=== PATIENT | male | born 1935 | race Caucasian/White ===

== ENCOUNTER 2018-09-24 18:23 | Emergency (ER) | payer MEDICARE, BC, OTHER, SELFPAY ==
[2018-09-24 18:25] VITALS: BP 154/84; PULSE 58; RESP 15; TEMP 36.4; O2SAT 98; BMI 27.6
--- NOTE | 2018-09-24 18:47 | ED.UPPEXIN ---
HPI - Extremity Injury (Upper) General Chief Complaint: Extremity Injury, Upper Stated Complaint: left arm incredible pain Time Seen by Provider: 09/24/18 18:47 Source: patient Mode of arrival: ambulatory Limitations: no limitations History of Present Illness HPI narrative: Patient is an 82-year-old male. Here for evaluation of a left arm injury. Patient states that yesterday he went to lift a dog and during the process had a sudden pain in his left arm. Very difficult for him to localize. He points from his mid humerus down to his mid forearm. He states that it caused him to drop the dog. Has had pain since then however yesterday afternoon it seemed to improve somewhat. He stated that earlier today he was lifting something over a small gait and again had a sudden return of the pain worse than what it was before. It is continued since then. Difficult for him to localize where the pain specifically is. Thought that he noticed some swelling on the inside portion of his elbow. Related Data Home Medications Medication Instructions Recorded Confirmed CA PANTOTHENATE/FOLIC ACID/VIT 1 tab PO Q DAY #0 04/29/11 07/30/18 (MULTIVITAMIN) Previous Rx's Medication Instructions Recorded docusate sodium 100 mg capsule 100 mg PO BID #60 cap 07/30/18 tramadol [Ultram] 50 mg PO Q12H PRN #20 tab 09/24/18 Allergies Allergy/AdvReac Type Severity Reaction Status Date / Time No Known Drug Allergies Allergy Verified 09/24/18 18:37 Review of Systems Constitutional Denies headache(s) ENT Ears, Nose, Mouth, and Throat: Denies headache(s) and Denies disequilibrium Musculoskeletal Comments: Left arm pain Integumentary/Breasts Denies new lesions and Denies rash Neurologic Denies headache(s), Denies paresthesias and Denies disequilibrium Hematologic/Lymphatic Denies easy bleeding and Denies easy bruising [facility] Medical History Cervical radiculopathy (Chronic) Cervical spine disease (Chronic) Chronic back pain (Chronic) Colon polyps (Chronic ~2009) Depression (Chronic ~1979) Foot pain (Chronic ~1999) Hearing loss (Chronic) History of elevated PSA (Chronic ~2009) Hyperlipidemia (Chronic) Osteoarthritis (Chronic) Peripheral neuropathy (Chronic ~1989) Plantar warts (Chronic) Prostate nodule (Chronic ~1999) Restless leg syndrome (Chronic) Scoliosis (Chronic) Shoulder pain (Chronic) Sleep apnea (Chronic ~2012) Spinal stenosis (Chronic) Spine pain, lumbar (Chronic) Vision disorder (Chronic) Chicken pox (Resolved ~1940) Fractures (Resolved ~1943) Measles (Resolved ~1942) Mumps (Resolved ~1943) Severe itching (Resolved) Surgical History (System 08/04/18 @ 09:07 by Sherrell Muñiz) Anesthesia (Resolved) History of back surgery (Resolved) History of knee surgery (Resolved ~1953) History of neck surgery (Resolved) History of surgery on arm (Resolved ~1941) Melanoma (Resolved ~1987) Family History (System 08/04/18 @ 09:07 by Sherrell Muñiz) Father Stroke Grandfather Stroke Grandmother Mental health problem Mother No problems noted. Social History Smoking Status: Never smoker Family History (System 08/04/18 @ 09:07 by Sherrell Muñiz) Father Stroke Grandfather Stroke Grandmother Mental health problem Mother No problems noted. Social History Smoking Status: Never smoker Exam Initial Vital Signs Initial Vital Signs: Vital Signs Temperature 97.6 F 09/24/18 18:25 Pulse Rate 58 L 09/24/18 18:25 Respiratory Rate 15 09/24/18 18:25 Blood Pressure 154/84 H 09/24/18 18:25 Pulse Oximetry 98 09/24/18 18:25 Const General: cooperative, comfortable, well developed, well groomed and No acute distress Orientation: alert and awake Cardio Pulses: radial pulses present on the left Skin Lesions: no lesions Rashes: no rashes Neuro Sensory Exam: no sensory deficits noted Extrem Other: Left hand left wrist unremarkable. Left forearm is unremarkable. Did have quite a bit of discomfort with supination. Was able to pronate without problems. Was able to flex at the elbow however did have some tenderness around the elbow. Extension at the elbow cause no symptoms. Patient able to flex and extend at the shoulder. Had some discomfort with abduction of the shoulder. No tenderness to palpation around the shoulder. Did have tenderness along the brachioradialis in the biceps tendon. I was able to palpate the biceps tendon proximally and distally. Psych Appearance: grossly normal and well kempt Course Orders Ordered: Discontinued Medications Tramadol HCl (Ultram 50mg Prepack) 1 bottle MISC SEEINSTR ONE Stop: 09/24/18 20:21 Last Admin: 09/24/18 20:35 Dose: 1 bottle Vital Signs - 8 hr 09/24/18 20:41 Temperature 98.2 F Pulse Rate 60 Respiratory Rate 18 Blood Pressure 145/78 H Pulse Oximetry 98 MDM - Extremity Injury (Upper) Imaging Data X-ray forearm: Radiologist's impression: [address] [address] XRay Report Signed Patient: Adan Burrell PMR#: [id number] : 1935[facility]:[id number] Age/Sex: 82 / MDate of Service: 09/24/18 Loc: ED Accession Number: [id number] Procedure: XR forearm LT 2V Ordering Provider: Juan Carlos Meza D.O. PROCEDURE: XR FOREARM LEFT 2V INDICATIONS: pain after lifting TECHNIQUE: 2 views of the forearm were acquired. COMPARISON: None. FINDINGS: Bones: No convincing acute fractures or dislocations. No suspicious bony lesions. There is cortical irregularity and sclerosis at the coronoid process, suggestive of prior chronic proximal ulna injury and degenerative change Soft tissues: No suspicious soft tissue calcifications or masses. 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 No convincing acute fracture or dislocation of the left forearm identified. Dictated by: Josh Gross M.D. on 09/24/2018 at 20:43 Approved by: Josh Gross M.D. on 09/24/2018 at 20:46 X-ray humerus: Radiologist's impression: [address] [address] XRay Report Signed Patient: Adan Burrell PMR#: [id number] : [id number] Age/Sex: 82 / MDate of Service: 09/24/18 Loc: ED Accession Number: [id number] Procedure: XR humerus LT 2V Ordering Provider: Juan Carlos Meza D.O. PROCEDURE: XR HUMERUS LT 2V INDICATIONS: arm pain after lifting TECHNIQUE: 2 views of the humerus were acquired. COMPARISON: None. FINDINGS: Bones: No fractures or dislocations. No suspicious bony lesions. Soft tissues: No suspicious soft tissue calcifications. No radiographic evidence of soft tissue edema. IMPRESSION: No acute fracture or dislocation of the left humerus. Dictated by: Josh Gross M.D. on 09/24/2018 at 20:37 Approved by: Josh Gross M.D. on 09/24/2018 at 20:43 [facility] Narrative Medical decision making narrative: No acute fractures on the x-rays. Patient is neurovascularly intact. Upon further evaluation patient's arms were in supination and at 90? flexion during both the events which caused him pain. I do have some suspicion that he has disrupted either the brachioradialis and or the biceps in his left arm. He does have some weakness with flexion of the left elbow. Patient was given a sling for comfort. Was also given pain medication. Was given phone numbers for the orthopedic group here in [facility]. Also informed him to contact his primary doctor on Thursday. He was given return precautions and care instructions. He expressed understanding and agreement with plan Discharge Plan Departure Patient Disposition: Home Clinical Impression: Left arm pain Discharge Date/Time: 09/24/18 20:46 Interventions: ED Discharge Assessment Last Done: 09/24/18 20:41 Instructions: How to Use a Sling Activity Restrictions/Additional Instructions: I have a suspicion that you have disrupted either your biceps tendon or brachial radialis tendon. On Thursday contact Dr. viveros is office for follow-up. Also contact the [facility] group at [phone] for follow-up as well. Return to the emergency department for any new or worsening symptoms Prescriptions: New tramadol [Ultram] 50 mg tablet 50 mg PO Q12H PRN (Reason: pain) Qty: 20 RF: 0 No Action CA PANTOTHENATE/FOLIC ACID/VIT (MULTIVITAMIN) 1 tab PO Q DAY Qty: 0 RF: 0 docusate sodium 100 mg capsule 100 mg PO BID Qty: 60 RF: 11 Referrals: Jimmy Lopez MD [Primary Care Provider] -
--- NOTE | 2018-09-24 18:55 | DI.RAD.S_ITS ---
PROCEDURE: XR HUMERUS LT 2V INDICATIONS: arm pain after lifting TECHNIQUE: 2 views of the humerus were acquired. COMPARISON: None. FINDINGS: Bones: No fractures or dislocations. No suspicious bony lesions. Soft tissues: No suspicious soft tissue calcifications. No radiographic evidence of soft tissue edema. IMPRESSION: No acute fracture or dislocation of the left humerus. Dictated by: Josh Gross M.D. on 09/24/2018 at 20:37 Approved by: Josh Gross M.D. on 09/24/2018 at 20:43
--- NOTE | 2018-09-24 18:55 | DI.RAD.S_ITS ---
PROCEDURE: XR FOREARM LEFT 2V INDICATIONS: pain after lifting TECHNIQUE: 2 views of the forearm were acquired. COMPARISON: None. FINDINGS: Bones: No convincing acute fractures or dislocations. No suspicious bony lesions. There is cortical irregularity and sclerosis at the coronoid process, suggestive of prior chronic proximal ulna injury and degenerative change Soft tissues: No suspicious soft tissue calcifications or masses. 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 No convincing acute fracture or dislocation of the left forearm identified. Dictated by: Josh Gross M.D. on 09/24/2018 at 20:43 Approved by: Johs Gross M.D. on 09/24/2018 at 20:46
[2018-09-24 19:28] VITALS: BP 137/76; PULSE 79; RESP 18; O2SAT 98
[2018-09-24] MEDS: TRAMADOL 50 MG PREPACK 1 BOTTLE MISC (20:35)
[2018-09-24 20:41] VITALS: BP 145/78; PULSE 60; RESP 18; TEMP 36.8; O2SAT 98
== END 2018-09-24 20:46 | disposition home or self-care (01) ==
PROVIDERS: Emergency Provider Emergency Medicine; PCP Student in an Organized Health Care Education/Training Program
DX: M79.602 Pain in left arm (principal); X50.9XXA Other and unspecified overexertion or strenuous movements or postures, initial encounter
CPT/HCPCS: 73060; 73090; 99282; 99283

== ENCOUNTER → 2019-01-24 15:00 | Outpatient (CLI) | payer MEDICARE, BC, OTHER, SELFPAY ==
[2019-01-24 15:58] LABS: BUN Creatinine Ratio 23.8 (6-22); Blood Urea Nitrogen 19 mg/dL (9-20); Calcium 9.2 mg/dL (8.4-10.2); Carbon Dioxide 28 mmol/L (22-32); Chloride 104 mmol/L (98-107); Estimated Glomerular Filt Rate > 60.0 mL/min (>60); Glucose 121 mg/dL (80-110); HEMOLYSIS < 15 (0-50); Potassium 4.5 mmol/L (3.4-5.1); Sodium 139 mmol/L (137-145)
[2019-01-24 16:15] LABS: Vitamin D 25 Hydroxy (D3) 28.5 ng/mL (30.0-100.0)
== END ==
PROVIDERS: PCP Student in an Organized Health Care Education/Training Program; Visit Provider Student in an Organized Health Care Education/Training Program
DX: I10 Essential (primary) hypertension (principal); E55.9 Vitamin D deficiency, unspecified; Z91.89 Other specified personal risk factors, not elsewhere classified
CPT/HCPCS: 36415; 80048; 82306

== ENCOUNTER → 2019-01-25 14:41 | Outpatient (CLI) | payer MEDICARE, BC, OTHER, SELFPAY | PROVIDERS: PCP Student in an Organized Health Care Education/Training Program; Visit Provider Student in an Organized Health Care Education/Training Program | DX: M85.851 Other specified disorders of bone density and structure, right thigh (principal); Z91.89 Other specified personal risk factors, not elsewhere classified | CPT/HCPCS: 77080 ==

== ENCOUNTER → 2019-05-17 13:05 | Outpatient (CLI) | payer MEDICARE, BC, OTHER, SELFPAY ==
[2019-05-17 13:44] LABS: Alanine Aminotransferase 20 IU/L (<50); Albumin 4.1 g/dL (3.5-5.0); Albumin Globulin Ratio 1.4 (1.0-2.8); Alkaline Phosphatase 71 U/L (38-126); Aspartate Aminotransferase 29 IU/L (17-59); Bilirubin Total 0.8 mg/dL (0.2-1.3); Bilirubin Unconjugated 0.7 mg/dL (0.0-1.1); HEMOLYSIS < 15 (0-50); Total Protein 7.1 g/dL (6.3-8.2)
== END ==
PROVIDERS: PCP Student in an Organized Health Care Education/Training Program; Referring Provider Student in an Organized Health Care Education/Training Program; Visit Provider Student in an Organized Health Care Education/Training Program
DX: Z79.899 Other long term (current) drug therapy (principal)
CPT/HCPCS: 36415; 80076

== ENCOUNTER → 2023-04-08 09:49 | Outpatient (CLI) | payer MEDICARE, BC, OTHER, SELFPAY ==
[2022-09-08 16:13] VITALS: BMI 26.8
--- NOTE | 2023-04-29 12:31 | PC.NURSE ---
ASTON MEETING MD NOTIFICATION CRITERIA POSTED FOR PT TODAY. TOOK PRELIM COPY AND DELIVERED TO DR. BACK'S MA PENDING MD OVERREAD.
== END ==
PROVIDERS: Family Provider Student in an Organized Health Care Education/Training Program; PCP Internal Medicine; Referring Provider Internal Medicine; Visit Provider Internal Medicine
DX: I48.91 Unspecified atrial fibrillation (principal)
CPT/HCPCS: 93246

== ENCOUNTER → 2023-04-27 15:48 | Outpatient (CLI) | payer MEDICARE, BC, OTHER, SELFPAY ==
[2022-09-08 16:13] VITALS: BMI 26.8
--- NOTE | 2023-04-27 15:49 | DI.CT.S_ITS ---
PROCEDURE: CT HEAD/BRAIN WO CON INDICATIONS: Cerebrovascular disease, unspecified TECHNIQUE: Noncontrast 4.5 mm thick angled axial sections acquired from the foramen magnum to the vertex, with coronal and sagittal reformats. For radiation dose reduction, the following was used: automated exposure control, adjustment of mA and/or kV according to patient size. COMPARISON: CT, CT ANGIO HEAD AND NECK, 12/25/2019, 0:17. CT, CT HEAD/BRAIN WO CON, 12/24/2019, 16:25. FINDINGS: Image quality: Diagnostic. CSF spaces: Basal cisterns are patent. No extra-axial fluid collections. The ventricles are symmetric in size and shape. Brain: No intracranial bleeds or masses. There is cerebral volume loss for age, with resultant ventricular and sulcal prominence. There are periventricular and deep white matter chronic small vessel ischemic changes. There is intracranial internal carotid artery atherosclerosis. Skull and face: Calvarium and visualized facial bones appear intact, without suspicious lesions. Sinuses: Visualized sinuses and mastoids are clear. IMPRESSION: 1. No acute intracranial process. 2. Moderate atrophy and chronic microvascular ischemic changes. Dictated by: Melissa Lion M.D. on 04/27/2023 at 20:24 Approved by: Melissa Lion M.D. on 04/27/2023 at 20:26
== END ==
LOC: CT 15:49
PROVIDERS: Family Provider Student in an Organized Health Care Education/Training Program; PCP Internal Medicine; Referring Provider Internal Medicine; Visit Provider Internal Medicine
DX: I67.9 Cerebrovascular disease, unspecified (principal); G30.1 Alzheimer's disease with late onset; F02.80 Dementia in other diseases classified elsewhere, unspecified severity, without behavioral disturbance, psychotic disturbance, mood disturbance, and anxiety
CPT/HCPCS: 70450

== ENCOUNTER → 2023-11-11 08:42 | Outpatient (CLI) | payer MEDICARE, BC, OTHER, SELFPAY ==
[2022-09-08 16:13] VITALS: BMI 26.8
--- NOTE | 2023-11-11 08:43 | DI.NM.S_ITS ---
PROCEDURE: NM BONE SCAN WHOLE BODY RADIOPHARMACEUTICAL: 20.8 mCi Tc-99m MDP IV. INDICATIONS: Radiculopathy, lumbar region TECHNIQUE: Delayed whole-body scintigrams were obtained approximately 3-4 hours after intravenous injection of radiotracer. Anterior and posterior views were acquired from vertex to feet. Additional left and right oblique views of the abdomen were obtained. COMPARISON: [facility], CT, CT LUMBAR SPINE WO CON, 08/09/2022, 12:17. FINDINGS: Significantly increased activity within the right renal region, correlate for hydronephrosis. Increased activity throughout the spine, most pronounced within the thoracic and lumbar spine. Focus of increased activity within the right proximal femur. Increased activity within the upper chest anteriorly, possibly involving the manubrium. Multifocal osseous uptake involving the bilateral shoulders, most pronounced at the right acromioclavicular joint, sternoclavicular joints, bilateral wrists, knees and ankles. IMPRESSION: 1. Significant uptake within the right kidney and right renal collecting system concerning for hydronephrosis. Recommend dedicated CT abdomen pelvis for further evaluation. 2. Increased activity throughout the spine, most pronounced within the lumbar spine. In the absence of malignancy, findings are likely degenerative in etiology. Recommend dedicated imaging of the lumbar spine for further evaluation. 3. Focus of increased activity within the right proximal femur. Findings may be metastatic in etiology, however in the absence of known malignancy, this is of uncertain etiology. Recommend dedicated imaging for further evaluation. 4. Additional multifocal osseous uptake throughout multiple joints which are likely degenerative in etiology. 5. Increased activity within the upper chest anteriorly, possibly involving the manubrium of uncertain etiology. Dictated by: José Luis Nathan M.D. on 11/12/2023 at 14:12 Approved by: José Luis Nathan M.D. on 11/12/2023 at 14:18
== END ==
LOC: NUCM 08:43
PROVIDERS: Family Provider Student in an Organized Health Care Education/Training Program; PCP Internal Medicine; Referring Provider Orthopaedic Surgery; Visit Provider Orthopaedic Surgery
DX: M54.16 Radiculopathy, lumbar region (principal)
CPT/HCPCS: 78306; A9503

== ENCOUNTER → 2023-12-02 10:16 | Outpatient (CLI) | payer MEDICARE, BC, OTHER, SELFPAY ==
[2022-09-08 16:13] VITALS: BMI 26.8
[2023-12-02 17:54] LABS: BUN Creatinine Ratio 17.9 (6-22); Blood Urea Nitrogen 17 mg/dL (9-20); Calcium 8.8 mg/dL (8.4-10.2); Carbon Dioxide 26 mmol/L (22-32); Chloride 109 mmol/L (98-107); Estimated Glomerular Filt Rate > 60 mL/min (>60); Glucose 109 mg/dL (80-110); HEMOLYSIS < 15 (0-50); Potassium 4.3 mmol/L (3.4-5.1); Sodium 141 mmol/L (137-145)
[2023-12-02 18:38] LABS: Prostate Specific Antigen 4.81 ng/mL (0.10-4.00)
== END ==
PROVIDERS: Family Provider Student in an Organized Health Care Education/Training Program; PCP Internal Medicine; Referring Provider Urology; Visit Provider Urology
DX: R97.20 Elevated prostate specific antigen [PSA] (principal); R31.21 Asymptomatic microscopic hematuria; R33.9 Retention of urine, unspecified
CPT/HCPCS: 36415; 80048; 84153